=== PATIENT | female | born 1980 | race Caucasian/White ===

== ENCOUNTER → 2016-11-26 | Outpatient (CLI) | payer OTHER | LOC: FIMAGING 15:52 | PROVIDERS: ATTEND Nurse Practitioner Women's Health | DX: R22.42 Localized swelling, mass and lump, left lower limb (principal) ==

== ENCOUNTER → 2017-03-25 | Outpatient (CLI) | payer OTHER | LOC: FIMAGING 15:23 | PROVIDERS: ATTEND Family Medicine | DX: N83.291 Other ovarian cyst, right side (principal); R93.8 Abnormal findings on diagnostic imaging of other specified body structures; Z97.5 Presence of (intrauterine) contraceptive device ==

== ENCOUNTER → 2017-05-14 | Outpatient (CLI) | payer OTHER | LOC: FIMAGING 09:28 | PROVIDERS: ATTEND Obstetrics & Gynecology | DX: N63.31 Unspecified lump in axillary tail of the right breast (principal) ==